=== PATIENT | male | born 1990 | race Caucasian/White ===

== ENCOUNTER → 2024-06-21 15:12 | Outpatient (CLI) | payer OTHER, SELFPAY ==
--- NOTE | 2024-06-21 15:14 | DI.CT.S_ITS ---
PROCEDURE: CT HEAD/BRAIN WO CON INDICATIONS: headaches TECHNIQUE: Noncontrast 4.5 mm thick angled axial sections acquired from the foramen magnum to the vertex, with coronal and sagittal reformats. For radiation dose reduction, the following was used: automated exposure control, adjustment of mA and/or kV according to patient size. COMPARISON: None. FINDINGS: Image quality: Diagnostic. CSF spaces: Basal cisterns are patent. No extra-axial fluid collections. Ventricles are normal in size and shape. Brain: No midline shift. No intracranial mass effect or hemorrhage. Brand-white matter interface is normal. Skull and face: Calvarium and visualized facial bones are intact, without suspicious lesions. Sinuses: Visualized sinuses and mastoids are clear. IMPRESSION: Normal noncontrast head CT. No acute intracranial hemorrhage is seen. To the limits of this noncontrast study, no findings of intracranial masses or mass effect can be seen. Dictated by: Alan Carrasco M.D. on 06/21/2024 at 14:47 Approved by: Alan Carrasco M.D. on 06/21/2024 at 14:48
== END ==
PROVIDERS: Referring Provider Student in an Organized Health Care Education/Training Program; Visit Provider Student in an Organized Health Care Education/Training Program
DX: R51.9 Headache, unspecified (principal)
CPT/HCPCS: 70450